=== PATIENT | male | born 1990 | race Caucasian/White ===

== ENCOUNTER 2019-11-19 15:32 | Inpatient (IN) ==
[2019-11-19 16:41] LABS: BASO# 0.03 X1000 (0.0-0.2); BASO% 0.4 % (0.0-0.8); EOS# 0.07 X1000 (0.0-0.7); HEMOGLOBIN 13.4 g/dL (14.0-18.0); IMM GRAN# 0.01 X1000 (0.0-0.04); IMM GRAN% 0.1 % (0.0-0.5); LYMPH# 1.79 X1000 (1.2-3.4); LYMPH% 26.6 % (20.5-51.1); MCH 26.9 PG (27-31); MCHC 31.9 g/dL (33-37); MCV 84.3 FL (81-99); MONO# 0.55 X1000 (0.11-0.59); MONO% 8.2 % (1.7-9.3); MPV 9.8 FL (7.4-10.4); NEUT# 4.29 X1000 (1.4-6.5); NEUT% 63.7 % (42.2-75.2); PLT 232 X1000 (130-400); RBC 4.98 XMIL (4.7-6.1); WBC 6.74 X1000 (4.8-10.8)
[2019-11-19] MEDS ORDERED: NS 1,000 ML IV ONE (16:53)
[2019-11-19 17:02] LABS: URINE SOURCE CLEAN CATCH
[2019-11-19 17:05] LABS: BLOOD URINE NEGATIVE (NEGATIVE); COLOR YELLOW; GLUCOSE URINE NEGATIVE (NEGATIVE); KETONE URINE NEGATIVE (NEGATIVE); LEUKOCYTES URINE NEGATIVE (NEGATIVE); NITRITE URINE NEGATIVE (NEGATIVE); PROTEIN URINE 30 mg/dL (NEGATIVE); SP GRAVITY URINE 1.035; TURBIDITY URINE CLEAR (CLEAR); UROBILINOGEN URINE 3 mg/dL (NORMAL)
[2019-11-19 17:22] LABS: INR 1.02; PROTIME 13.9 Seconds (11.0-16.0)
[2019-11-19 17:23] LABS: PTT 30.2 Seconds (22.3-41.8)
--- NOTE | 2019-11-19 17:23 | PROVIDER DOCUMENTATION ---
This chart was entered by Juju Sommers Scribe, acting as scribe for Ann Burgess CRNP. HPI-General Adult - General Chief Complaint: Nausea/Vomiting Stated Complaint: VOMITING Time Seen by Provider: 11/19/19 16:15 Source: patient Allergies/Adverse Reactions: Patient Allergies Allergy/AdvReac Type Severity Reaction Status Date / Time No Known Allergies Allergy Verified 08/27/18 14:43 Home Medications: Home Medication List Medication Instructions Recorded Confirmed Last Taken Type Buprenorphine HCl/Naloxone HCl 1 dose PO BID 08/27/18 11/19/19 Unknown History [Suboxone 8 mg/2 mg Sl Film] Clonazepam 1 tab PO TID 11/19/19 11/19/19 Unknown History - History of Present Illness -Gen Adult Nature of Presenting Problems: Patient is a 29 year old male who presents with nausea, vomiting and lower back pain. States symptoms have been present for 2 weeks. Denies diarrhea. Reports last bowel movement was 3 days ago. States he has been out of his Subutex for 3 days. Location of Pain/Injury: reports: back (lower) Pain Radiation: reports: no radiation Quality of Pain: reports: aching Severity: reports: mild Onset/Duration: reports: other (2 weeks ago) Timing: reports: still present, intermittent Context/Activities at Onset: reports: light activity Modifying Factors: improves with: nothing Associated Symptoms: reports: back/neck pain, nausea, vomiting. denies: diarrhea, fever/chills, genitourinary problems, shortness of breath Similar Symptoms Previously?: No Recently seen or treated by another doctor?: No Review of Systems - Adult - REVIEW OF SYSTEMS - ADULT Constitutional: reports: no symptoms reported. denies: chills, fever Eyes: reports: no symptoms reported Ears, Nose, Mouth & Throat: reports: no symptoms reported Cardiovascular: reports: no symptoms reported. denies: chest pain, palpitations Respiratory: reports: no symptoms reported. denies: cough, shortness of breath Gastrointestinal: reports: see HPI, nausea, vomiting. denies: abdominal pain, diarrhea Genitourinary: reports: no symptoms reported. denies: dysuria, discharge, frequency Musculoskeletal: reports: see HPI, back pain (lower). denies: muscle aches, neck pain Integumentary: reports: no symptoms reported Neurological: reports: no symptoms reported Psychiatric: reports: no symptoms reported Endocrine: reports: no symptoms reported Past History - Adult - PAST MEDICAL HISTORY-ADULT Review of Records: reports: Nursing Assessment Review, Medications Reviewed Major Childhood Illnesses: reports: denies history Cardiovascular: reports: denies history Respiratory: reports: denies history Gastrointestinal: reports: denies history Obstetrical/Gynecological: reports: denies history Genitourinary: reports: denies history Musculoskeletal: reports: denies history Neurological: reports: denies history Psychiatric: reports: denies history Endocrine/Immune: reports: denies history Other Conditions: reports: denies history - PRIOR SURGERIES/PROCEDURES Surgical/Procedure History: reports: orthopedic (extremity) (left leg, right knee) - IMMUNIZATION STATUS Childhood Immunizations: See Nurse Assessment Flu Vaccine: See Nurse Assessment - FAMILY HISTORY Family History: reviewed, not pertinent - SOCIAL HISTORY Smoking: cigarettes, greater than 1 pack/day Provider spent 3-5 mins advising pt. on dangers of tobacco.: Discussed manners to quit use, and f/u contacts for add'l counseling. Substance Use: marijuana Physical Exam-General - PHYSICAL EXAM-ADULT Initial Vital Signs Reviewed: Yes - CONSTITUTIONAL General Appearance: alert, mild distress, thin. negative: lethargic, slow to respond, obtunded - EYES Eyes: PERRL/EOMI, scleral icterus (mild). negative: EOM palsy - HEAD, EARS, NOSE, MOUTH & THROAT HENMT: normocephalic/atraumatic. negative: angioedema - NECK Neck: full range of motion, supple, normal inspection - RESPIRATORY Respiratory: chest non-tender, lungs clear, normal breath sounds, no pleuratic chest pain, no respiratory distress, no accessory muscle use. negative: crackles, rales, rhonchi, stridor, wheezing, retractions, splinting - CARDIOVASCULAR Cardiovascular: regular rate, rhythm, no gallop - GASTROINTESTINAL (ABDOMEN) Abdominal Exam: non tender, soft, tenderness (mild generalized TTP). negative: guarding, rigid, rebound - GENITOURINARY Male Genitalia: deferred - MUSCULOSKELETAL Back Exam: normal inspection, no CVA tenderness. negative: decreased range of motion, vertebral tenderness Extremity: normal range of motion, non-tender, normal inspection - SKIN Integumentary: normal color, warm/dry, jaundice (mild). negative: cyanosis, pallor - NEUROLOGIC Neurologic: grossly normal. negative: aphasia, EOM palsy - PSYCHIATRIC Psych/Mental Status: normal mood/affect, normal thought content, normal thought process, oriented x 3 Progress - PLAN OF CARE/RESULTS Progress/Plan/Lab Results: Vital Signs - 8 hr 11/19/19 15:45 11/19/19 16:35 11/19/19 16:53 Temperature 97.9 F Pulse Rate 60 57 L Pulse Rate [Sitting] 64 Pulse Rate [Standing] 70 Pulse Rate [Supine] 61 Respiratory Rate 18 16 Blood Pressure 93/57 100/59 Blood Pressure [Sitting] 109/69 Blood Pressure [Standing] 107/68 Blood Pressure [Supine] 96/59 O2 Sat by Pulse Oximetry 99 100 Laboratory Results - last 24 hr 11/19/19 11/19/19 16:28 16:49 WBC 6.74 RBC 4.98 Hgb 13.4 L Hct 42.0 MCV 84.3 MCH 26.9 L MCHC 31.9 L RDW Std Deviation 14.0 Plt Count 232 MPV 9.8 Immature Gran % (Auto) 0.1 Neut % (Auto) 63.7 Lymph % (Auto) 26.6 Fleming % (Auto) 8.2 Eos % (Auto) 1.0 Baso % (Auto) 0.4 Immature Gran # (Auto) 0.01 Neut # (Auto) 4.29 Lymph # (Auto) 1.79 Fleming # (Auto) 0.55 Eos # (Auto) 0.07 Baso # (Auto) 0.03 Urine Source CLEAN CATCH Orders Category Date Time Status ED: Orthostatic Vital Signs (E DIRECTED Care 11/19/19 16:12 Active Saline Loc NOW Care 11/19/19 16:11 Active CBC WITH ELECTRONIC DIFF [HEME] Stat Lab 11/19/19 16:28 Completed COMPREHENSIVE METABOLIC PANEL [CHEM] Stat Lab 11/19/19 16:28 Received LIPASE [CHEM] Stat Lab 11/19/19 16:28 Received MAGNESIUM [CHEM] Stat Lab 11/19/19 16:28 Received PHOSPHORUS [CHEM] Stat Lab 11/19/19 16:28 Received URINALYSIS W/POSS RFLX CULT [URINALYSIS] Stat Lab 11/19/19 16:49 Results URINE DRUG SCREEN PL Stat Lab 11/19/19 16:49 Received 0.9% Sodium Chloride Inj [Ns] 1,000 ml Med 11/19/19 16:53 Active IV 999 mls/hr 1754: Patient denies illicit drug use except for Marijuana, however UDS positive for Amphetamines and Methamphetamines. Dr. Rico spoke with patient regarding drug usage, and patient admits to IV/smoking Amphetamine and Methamphetamine usage. Reports he does not currently share needles, however he has in the past. 1820: Hospitalist DELIA at bedside. Lab results, imaging results, plan of care, and need for admission discussed with patient who agrees with and verbalizes understanding. Result Diagrams: 11/19/19 16:28 11/19/19 16:28 - CT/MRI 1 CT Study: Abdomen, Pelvis Impression: See EMR Report ([facility] - [address] , [address], [place] [address] [facility] - [address], [place] [address] Department of Imaging Patient: GRETEL GOMEZADM Date: 11/19/19MR#: [id number] : 1990ADM Status: REG ERAt#: [id number] Age/Sex: 29/MRoom/Bed: Loc: P.ED Ordering Physician: Ann Hamm Family Physician: None,PCP Reason for Procedure: N/v; abdominal pain; new onset transaminitis/jaund ___ Signed CT ABD/PELVIS W/IV CONT ONLY - 11/19/2019 INDICATION: N/v; abdominal pain; new onset transaminitis/jaund COMPARISON: None FINDINGS: The lung bases are clear and the heart size is normal. The gallbladder is completely collapsed. No large gallstones. No biliary dilation. The liver, pancreas, spleen, adrenals, and kidneys are normal. No bowel obstruction or inflammation. Mild diffuse constipation. Urinary bladder, prostate, and rectum are normal. There are chronic bilateral L5 pars defects. There is advanced degeneration of both sacroiliac joints. No acute bony lesions. IMPRESSION: 1. Mild diffuse constipation. 2. Gallbladder is completely collapsed. This may represent chronic cholecystitis. Recommend further evaluation with a HIDA scan. This exam was performed using automated exposure control, adjustment of mA or kV according to patient size, and/or use of iterative reconstruction technique Electronically signed by Roger Rae 11/19/2019 7:22 PM 11/19/191921 Interpreting Physician: Roger Rae MD Dictated Date/Time: 11/19/191917 cc: Ann Burgess; None,PCP) - CONSULTS/PCP/HOSPITALIST Notification #1 *Consult/PCP/Hospitalist*: Jonna Hospitalist DELIA Time Discussed: 18:03 Reason/Comments: New onset Transaminitis; jaundice; n/v Consult Disposition: Will see in ED, Admit (Post CT results) Departure - Departure Date of Disposition Decision: 11/19/19 Time of Disposition Decision: 18:02 DIAGNOSIS: Transaminitis, Jaundice, Intravenous drug user Nausea and vomiting Qualifiers: Vomiting type: unspecified Vomiting Intractability: unspecified Qualified Code(s): R11.2 - Nausea with vomiting, unspecified Disposition: ADMITTED INPATIENT 09 Certified Medical Emergency: Emergent Condition: Stable Referrals and Follow-Ups: None,PCP [Primary Care Provider] - - Critical Care Note This patient required my direct & personal management of CC.: No Attestation - Physician/ YANNA Attestation Patient care was provided by Advanced Practice Provider:: Yes Advanced Practice Provider:: Ann Burgess Advanced Practice Provider documentation review:: The Mid-level provider documentation, treatment plan and medical decision making was reviewed by the physician who agrees with all treatment and medical decision making by the P. The physician spent face to face time with patient:: Yes (Jacky) Advanced Practice Provider documentation review:: Supervising physician onsite and consulted in the evaluation and care of this patient. The physician did have a face to face encounter with the patient. This chart was documented by the indicated scribe, (Juju Sommers Scribe) and accurately reflects the services I performed and decisions made by me, Ann Burgess CRNP, as attested by the provider's signature.
[2019-11-19 17:33] LABS: UR AMPHETAMINES QUAL PRESUMPTIVE POSITIVE (NONE DETECT); UR BARBITUATES QUAL NONE DETECTED (NONE DETECT); UR BENZODIAZEPIN QUAL NONE DETECTED (NONE DETECT); UR CANNABINOIDS QUAL PRESUMPTIVE POSITIVE (NONE DETECT); UR COCAINE QUAL NONE DETECTED (NONE DETECT); UR METHADONE QUAL NONE DETECTED (NONE DETECT); UR METHAMPHETAMINE QUAL PRESUMPTIVE POSITIVE (NONE DETECT); UR OPIATES QUAL NONE DETECTED (NONE DETECT); UR OXYCODONE QUAL NONE DETECTED (NONE DETECT); UR PCP QUAL NONE DETECTED (NONE DETECT); UR PROPOXYPHENE QUAL NONE DETECTED (NONE DETECT); UR TCA QUAL NONE DETECTED (NONE DETECT)
[2019-11-19 17:35] LABS: AGAP 11; ALBUMIN 3.5 g/dL (3.5-5.0); ALKALINE PHOSPHATASE 219 U/L (32-122); BUN 9 mg/dL (8-22); CALCIUM 8.3 mg/dL (8.8-10.2); CHLORIDE 102 mmol/L (98-107); COSMO 274; CREATININE 0.7 mg/dL (0.7-1.2); ESTIMATED GFR > 60; GLUCOSE 98 mg/dL (70-104); GOT 347 U/L (10-34); LIPASE 32 U/L (13-60); MAGNESIUM 1.9 mg/dL (1.5-2.7); PHOSPHORUS 3.3 mg/dL (2.7-4.5); POTASSIUM 4.2 mmol/L (3.5-5.1); SODIUM 138 mmol/L (136-145); TCO2 25 mmol/L (25-35); TOTAL PROTEIN 6.5 g/dL (6.3-8.3)
[2019-11-19 17:41] LABS: GPT 1116 U/L (10-44)
[2019-11-19 17:56] LABS: UR EPITHELIAL CELLS >10 /HPF (<10); URINE BACTERIA 1+ /HPF
[2019-11-19 17:58] LABS: URINE CASTS NONE SEEN; URINE CRYSTALS URIC ACID PRESENT; URINE SMALL ROUND CELLS NONE SEEN; URINE WBC <10 /HPF (<10); URINE YEAST NONE SEEN
[2019-11-19 18:35] LABS: BILIRUBIN URINE LARGE (NEGATIVE)
--- NOTE | 2019-11-19 19:24 | Diag Imaging Result Doc PS360 ---
CT ABD/PELVIS W/IV CONT ONLY - 11/19/2019 INDICATION: N/v; abdominal pain; new onset transaminitis/jaund COMPARISON: None FINDINGS: The lung bases are clear and the heart size is normal. The gallbladder is completely collapsed. No large gallstones. No biliary dilation. The liver, pancreas, spleen, adrenals, and kidneys are normal. No bowel obstruction or inflammation. Mild diffuse constipation. Urinary bladder, prostate, and rectum are normal. There are chronic bilateral L5 pars defects. There is advanced degeneration of both sacroiliac joints. No acute bony lesions. IMPRESSION: 1. Mild diffuse constipation. 2. Gallbladder is completely collapsed. This may represent chronic cholecystitis. Recommend further evaluation with a HIDA scan. This exam was performed using automated exposure control, adjustment of mA or kV according to patient size, and/or use of iterative reconstruction technique Electronically signed by Roger Rae 11/19/2019 7:22 PM
[2019-11-19] MEDS: NS 1,000 ML IV SCH (19:48)
[2019-11-19] MEDS: ZOFRAN IV PRN (19:48)
--- NOTE | 2019-11-19 21:35 | HISTORY AND PHYSICAL ---
HISTORY AND PHYSICAL ADDENDUM: Patient presented to the hospital with nausea, vomiting, abdominal pain symptoms for 2 weeks. States he has been out of Subutex for the past 3 days. Blood pressures are low at 93/57, 107/68. Drug screen is positive for amphetamines, methamphetamines. Patient does admit to smoking IV amphetamine, IV methamphetamine. Denies currently sharing needles. CMP was noted to have an AST of 347, ALT of 1116, alkaline phosphatase of 219. CT abdomen, currently pending. Hepatitis profile also pending. We are going to admit the patient to the hospital. Ask GI to evaluate his liver and we will follow. cc: Matt Hammonds MD
--- NOTE | 2019-11-19 22:24 | HISTORY AND PHYSICAL ---
PRIMARY CARE PROVIDERS: Dr. Maki. CHIEF COMPLAINT: Vomiting and lower back pain. HISTORY OF PRESENT ILLNESS: Mr. Elder Moody is a 29-year-old, male with a medical history of anxiety, opioid abuse, IV methamphetamine abuse, tobacco abuse, who states that for the last 2 weeks he has had constipation, lower back pain and vomiting. He has also noticed that his urine is darker. He has had full body aches with a temperature max of 102, and that his skin has yellowed. In addition to that. He feels like he has been having a lot of vomiting along with gastric reflux. His last bowel movement was around 3 days ago. He complains of being constipated. Laboratory data reveals that he has an acute liver injury or acute hepatitis. The total bilirubin is 7.10. The AST is 347, and the ALT is 1116. Currently, there is an abdominal pelvic CT ordered, a hepatitis panel ordered. His is at the bedside and states that she actually had hepatitis A about a month ago. His urine drug screen is also positive for amphetamines and methamphetamines along with cannabinoids. He states that at night he has also been having some nighttime sweats in addition to the fever and along with the body aches. Assessment reveals that all extremities are cool. He does have 1+ lower extremity and upper extremity pulses. He denies any chest pain or shortness of breath, but we will go ahead and get an echocardiogram and blood cultures to rule out any kind of bacteremia or valve digitation. PAST MEDICAL HISTORY: 1. Anxiety. 2. Opioid abuse. 3. IV drug use. SURGICAL HISTORY: 1. Bilateral lower extremity surgical repair. 2. Tonsillectomy and adenoidectomy. SOCIAL HISTORY: One pack per day smoker since the age of 12. He smokes marijuana daily. He uses methamphetamines IV or smoking about 2 to 3 times per week and last time was this past Tuesday, which was around 3 days ago. He is , has 1 daughter who is currently unemployed. FAMILY HISTORY: Mother had breast cancer. Father none. ALLERGIES: No known drug allergies. HOME MEDICATIONS: 1. Suboxone 8 mg/2 mg sublingual twice a day. 2. Clonazepam 0.5 mg p.o. t.i.d. REVIEW OF SYSTEMS: Fourteen-point review of systems are complete and all were negative except those mentioned above in HPI. PHYSICAL EXAMINATION: VITAL SIGNS: Temperature 97.9 degrees, heart rate 57, respiratory rate 16, blood pressure 100/59, O2 saturation 100% on room air. Orthostatic vital signs were obtained. Supine heart rate 61, blood pressure 96/59, sitting heart rate 64, blood pressure 109/69, standing heart rate 70, blood pressure 107/68. GENERAL: Mr. Elder Moody is a 29-year-old, male. He is in no acute distress and able to answer questions appropriately. HEENT: Atraumatic, normocephalic. Pupils equal, round, reactive to light. Extraocular movements intact. Mucous membranes are dry. NECK: Trachea midline. CARDIOVASCULAR: S1, S2. Regular rate and rhythm. No rubs, gallops, murmurs. No lower extremity edema. +1 dorsalis and radial pulses. Negative for JVD or carotid bruits. PULMONARY: Clear to auscultate bilateral breath sounds. No accessory muscle use or work of breathing noted. GASTROINTESTINAL: Soft, mild tenderness in all 4 quadrants, specifically in the right. Hypoactive bowel sounds x4. EXTREMITIES: Moves all extremities equally. Full range of motion. NEUROLOGIC: A and O x3. Follows commands. Sensory is intact. SKIN: Warm, dry, intact, but icterus and jaundiced. There are no open wounds. No other signs or symptoms of infection on the skin. LABORATORY DATA: White blood cells 6000, hemoglobin 13, hematocrit 42, platelet count 232,000. INR is 1.02, PTT is 30.2. Sodium 138, potassium 4.2, BUN 9, creatinine 0.7, glucose 98, calcium 8.3, phosphorus 3.3, magnesium 1.9, total bilirubin 7.10, AST 347, ALT 1116, alkaline phosphatase was 219. CK 29, troponin less than 6. Albumin 3.5, lipase 32. Urinalysis: 30 protein, large bilirubin, 3 urobilinogen, greater than 10 epithelial cells, 1+ bacteria. There is uric acid present. Urine drug screen positive for amphetamines methamphetamines and positive for cannabinoids. IMAGING: None at this time. What has been ordered is an abdominopelvic CT. ASSESSMENT AND PLAN: 1. Acute hepatitis cause currently unknown. Hepatitis panel has been ordered. Him and his also report that she was diagnosed with hepatitis A about a month ago. He denies taking Tylenol. Denies alcohol abuse. He has had excessive vomiting for 2 weeks. His skin is jaundiced. Gastroenterology has also been consulted for further assistance with treatment and evaluation. 1. Intravenous drug use with cool extremities, reported fever of 102 and night sweats so we will go ahead and get an echocardiogram and blood cultures to rule out endocarditis given the history of IV drug use. He is supposed to be on Suboxone. Apparently, he has not had it in a couple of days. He states he has been on Suboxone for 4 years due to opioid abuse. 2. Anxiety. Takes clonazepam. We are going to hold that as well. 3. Complaints of constipation. Last bowel movement was around 3 days ago. Might need to get him started on stool softener or a suppository. 4. Deep venous thrombosis prophylaxis. Sequential compression devices. Dictated by DELIA Kidd for Matt Hammonds MD cc: DELIA Kidd MD
[2019-11-20] MEDS ORDERED: PROTONIX IV ONE (04:06)
[2019-11-20] MEDS ORDERED: SODIUM CHLORIDE 0.9% INJ ONE (04:06)
[2019-11-20] MEDS: NS 1,000 ML IV SCH ×2 (07:40→18:24)
[2019-11-20 07:47] LABS: BASO# 0.03 X1000 (0.0-0.2); BASO% 0.4 % (0.0-0.8); EOS# 0.08 X1000 (0.0-0.7); EOS% 1.1 % (0.0-10.0); HEMATOCRIT 39.3 % (42.0-52.0); HEMOGLOBIN 12.6 g/dL (14.0-18.0); IMM GRAN# 0.02 X1000 (0.0-0.04); IMM GRAN% 0.3 % (0.0-0.5); LYMPH# 1.59 X1000 (1.2-3.4); LYMPH% 22.7 % (20.5-51.1); MCH 26.8 PG (27-31); MCHC 32.1 g/dL (33-37); MCV 83.6 FL (81-99); MONO# 0.76 X1000 (0.11-0.59); MONO% 10.9 % (1.7-9.3); MPV 9.7 FL (7.4-10.4); NEUT# 4.52 X1000 (1.4-6.5); NEUT% 64.6 % (42.2-75.2); PLT 220 X1000 (130-400)
[2019-11-20 08:04] LABS: INR 1.04; PROTIME 14.1 Seconds (11.0-16.0)
[2019-11-20 08:05] LABS: PTT 29.2 Seconds (22.3-41.8)
[2019-11-20 08:16] LABS: AGAP 10; ALKALINE PHOSPHATASE 215 U/L (32-122); BUN 6 mg/dL (8-22); CHLORIDE 104 mmol/L (98-107); COSMO 273; CREATININE 0.5 mg/dL (0.7-1.2); ESTIMATED GFR > 60; GLUCOSE 92 mg/dL (70-104); GOT 257 U/L (10-34); MAGNESIUM 1.8 mg/dL (1.5-2.7); POTASSIUM 4.2 mmol/L (3.5-5.1); SODIUM 138 mmol/L (136-145); TCO2 25 mmol/L (25-35); TOTAL PROTEIN 5.8 g/dL (6.3-8.3)
[2019-11-20 08:27] LABS: GPT 827 U/L (10-44)
--- NOTE | 2019-11-20 08:35 | Diag Imaging Result Doc PS360 ---
EXAM: US GB < RUQ (LIMITED) HISTORY: cholecystitis TECHNIQUE: Right upper quadrant ultrasound COMPARISON: CT from 11/19/2019 FINDINGS: Normal inferior vena cava. No abdominal aortic aneurysm. Normal pancreas. No focal hepatic abnormality. The patient ate a doughnut this morning. The gallbladder is collapsed. No abnormality identified. Normal right kidney. No hydronephrosis. The common bile duct measures 3 mm. IMPRESSION: No abnormality identified. Electronically signed by Norbert Scott 11/20/2019 8:32 AM
[2019-11-20] MEDS: SUBOXONE 8 MG/2 MG FILM SL SCH ×2 (09:07→20:25)
[2019-11-20] MEDS: ZOFRAN IV PRN ×2 (12:55→18:25)
[2019-11-20] MEDS ORDERED: NICODERM PATCH TD PRN (16:13)
--- NOTE | 2019-11-20 23:30 | ECHO REPORT ---
ORDER DATE: 11/20/2019 MEASUREMENTS: Septal thickness 0.8, left ventricular internal diameter in diastole 4.7, posterior wall thickness 0.9, left ventricular internal diameter in systole 2.9, aortic root 3.0, left atrium 3.0. SUMMARY: 1. Adequate quality study. 2. Aortic valve is trileaflet and opens normally on 2-dimensional images. Peak gradient across aortic valve is less than 10 mmHg. Mitral, tricuspid, and pulmonic valves are without evidence of structural abnormality with trace tricuspid regurgitation. Aortic root is normal in size. 3. Normal left ventricular dimensions demonstrated. The estimated left ejection fraction appears to be at least 60%. No regional wall motion abnormalities evident. Left atrium is normal in size. Right atrium, right ventricle appear mildly enlarged. 4. No pericardial effusion. 5. Appearance of inferior vena cava suggests normal central venous pressure. CONCLUSIONS: 1. No significant valvular abnormality evident. 2. Normal left ventricular systolic function without regional wall motion abnormality evident. 3. Mild right-sided chamber enlargement. cc: MD Jonna Gee CRNP
--- NOTE | 2019-11-21 00:21 | PROGRESS NOTE ---
DATE: 11/20/2019 SUBJECTIVE: Patient notes he is feeling better today. He is hungry. He is still having some abdominal pain, but this has improved. States he typically does not have abdominal pain when he eats, but he has been having nausea, vomiting, abdominal pain for the past 2 weeks. His also recently had hepatitis A. PHYSICAL EXAMINATION: Vital Signs: Reviewed. Blood pressure is stable. His O2 saturation is 98% on room air. He is afebrile. General: He is awake, alert. He is in no current respiratory distress. HEENT: Normocephalic. Neck: Supple. Cardiovascular: Regular rate. Chest: Clear, nonlabored. Abdomen: Soft. Minimal tenderness right upper quadrant. No ascites. No diffuse abdominal pain. Extremities: Moves all extremities. Skin: Warm, dry. No rashes. His jaundice is still present. Still has some mild scleral icterus, although this does appear to be improving. ASSESSMENT: 1. Acute transaminitis of undetermined origin, likely hepatitis A given that his recently had such and he has frequent IV drug use. 2. Chronic anxiety. 3. Opiate withdrawal. He is on Suboxone at home but has not restarted this yet. PLAN: To keep the patient from leaving [facility], we are going to place him on his home Suboxone. We will continue to follow. If his enzymes do not improve we may need a HIDA scan in the future. Most likely this is hepatitis A related. Thankfully, his enzymes have started decreasing, his ALT has dropped from 1100 down to 800 and his bilirubin also has decreased. I did discuss with Dr. Escobar, who agrees with current plan. cc: Matt Hammonds MD
[2019-11-21 06:30] LABS: BASO# 0.03 X1000 (0.0-0.2); BASO% 0.5 % (0.0-0.8); EOS# 0.11 X1000 (0.0-0.7); EOS% 1.9 % (0.0-10.0); HEMATOCRIT 40.2 % (42.0-52.0); HEMOGLOBIN 12.6 g/dL (14.0-18.0); IMM GRAN# 0.01 X1000 (0.0-0.04); IMM GRAN% 0.2 % (0.0-0.5); LYMPH# 1.68 X1000 (1.2-3.4); LYMPH% 29.6 % (20.5-51.1); MCH 26.6 PG (27-31); MCHC 31.3 g/dL (33-37); MONO# 0.61 X1000 (0.11-0.59); MONO% 10.8 % (1.7-9.3); MPV 9.9 FL (7.4-10.4); NEUT# 3.23 X1000 (1.4-6.5); PLT 208 X1000 (130-400); RBC 4.73 XMIL (4.7-6.1); RDW 14.5 % (11.5-14.5); WBC 5.67 X1000 (4.8-10.8)
[2019-11-21 06:50] LABS: AGAP 8; ALBUMIN 3.2 g/dL (3.5-5.0); ALKALINE PHOSPHATASE 233 U/L (32-122); BUN 7 mg/dL (8-22); CALCIUM 8.3 mg/dL (8.8-10.2); CHLORIDE 102 mmol/L (98-107); COSMO 276; CREATININE 0.7 mg/dL (0.7-1.2); ESTIMATED GFR > 60; GLUCOSE 99 mg/dL (70-104); GOT 171 U/L (10-34); GPT 674 U/L (10-44); MAGNESIUM 1.9 mg/dL (1.5-2.7); POTASSIUM 4.5 mmol/L (3.5-5.1); SODIUM 139 mmol/L (136-145); TCO2 29 mmol/L (25-35); TOTAL PROTEIN 6.1 g/dL (6.3-8.3)
[2019-11-21 08:13] VITALS: BP 96/48
[2019-11-21] MEDS: SUBOXONE 8 MG/2 MG FILM SL SCH (08:43)
[2019-11-21 14:22] LABS: HEPATITIS PROFILE ACUTE SEE COMMENTS
--- NOTE | 2019-11-22 13:01 | DISCHARGE SUMMARY ---
ADMISSION DATE: 11/19/2019 DISCHARGE DATE: 11/21/2019 ADMITTING DIAGNOSES: 1. Acute hepatitis. 2. IV drug use. 3. Anxiety. 4. Constipation. DISCHARGE DIAGNOSES: 1. Acute transaminitis. 2. Chronic anxiety. 3. Opiate withdrawal. PROCEDURES AND FINDINGS: 1. CT of the abdomen and pelvis done on 11/19/2019 did show mild diffuse constipation. Gallbladder is completely collapsed which may represent chronic cholecystitis. 2. Abdominal ultrasound done on 11/20/2019 showed no abnormality identified. 3. Echocardiogram done on 11/20/2019 showed no significant valvular abnormality with normal left ventricular systolic function with regional wall abnormality evident, mild right center chamber enlargement and an EF of 60% with normal left ventricular dimensions. HOSPITAL COURSE: Mr. Moody is a 29-year-old male with a history of opiate abuse and IV methamphetamine abuse, who presented to the ER with complaints of body aches and a temperature of a 102 degrees and yellow-tinted skin. The patient had been having vomiting along with gastric reflux and constipation. The patient was noted to have elevated bilirubin of 7.10, elevated liver enzymes with an AST of 347 and an ALT of 1116. The patient reports that his had hepatitis A earlier. The patient also reported that he had not had his Subutex for the last 3 days. The patient's urine drug screen was positive for amphetamines, methamphetamines and cannabinoids. The patient was admitted to the medical floor. A hepatitis screen was ordered. Gastroenterology was consulted. Because of his history of IV drug use, echocardiogram and blood cultures were obtained. The patient's Suboxone was restarted. His liver enzymes did start to improve. The patient was given IV fluid hydration, Zofran for his nausea. His vital signs are better. He is not reporting any nausea at this time. His AST is now 171. His ALT is now 674 with alkaline phosphatase of 233 and total bilirubin is now 5.10. The patient will be discharged home today. The patient will continue his Suboxone 8 mg sublingual b.i.d. He will need to follow up with his district manager primary care sales, Quinton Maki, in 1 to 2 weeks or sooner if needed. DISCHARGE MEDICATIONS: Suboxone 8 mg sublingual b.i.d. DISCHARGE DIET: Resume diet as tolerated. DISCHARGE ACTIVITY: Resume on activity as tolerated. DISCHARGE DISPOSITION: Patient is to discharge home with self care. He is to follow up with his district manager primary care sales, Dr. Quinton Maki, in 1 to 2 weeks or sooner if needed. He is to refrain from any smoking, alcohol or illicit drug use. He is to notify his district manager primary care sales, Dr. Quinton Maki, for any other questions or concerns. Dictated by DELIA Munoz for Matt Hammonds MD cc: MD Quinton Easton MD
[2019-11-22 13:17] LABS: HCV BY PCR SEE COMMENTS
--- NOTE | 2019-11-22 21:16 | DISCHARGE SUMMARY ---
ADMISSION DATE: 11/19/2019 DISCHARGE DATE: 11/21/2019 On discharge, patient is awake, alert. He is in no distress. He feels well enough that he removed his IV overnight without telling the nurse. His ALT, AST both have continued to decline currently at 171 and 674. Total bilirubin also was continued to decline, as it started at 7, currently down to 5. We did discuss with Dr. Escobar. He feels as though this is probably hepatitis A and should be self-limiting and resolved on its own. DISPOSITION: The patient will be discharged home. Discussed him the importance of stopping his extracurricular activities and following up outpatient with treatment facility of choice. TIME SPENT: Greater than 30 minutes was spent in total care. cc: Matt Hammonds MD
== END 2019-11-21 12:35 | disposition home or self-care (01) | DRG 442 ==
LOC: P.ED 15:32 → P.EDIPHOLD 11-20 00:45 → P.MEDSURG 11-20 09:24
PROVIDERS: ATTEND Family Medicine